=== PATIENT | female | born 1965 | race Caucasian/White ===

== ENCOUNTER 2017-05-21 17:59 | Emergency (ER) | payer MEDICAID ==
[~2017-05-21] VITALS: Ht 165.1 cm; Wt 85.7 kg
[2017-05-21 18:19] VITALS: BP 193/108
== END 2017-05-21 19:45 | disposition left against medical advice (07) ==
LOC: ER 17:59
DX: R51 Headache (principal); Z53.21 Procedure and treatment not carried out due to patient leaving prior to being seen by health care provider